=== PATIENT | female | born 1985 | race Caucasian/White ===

== ENCOUNTER → 2022-08-30 13:17 | Outpatient (CLI) | payer OTHER, SELFPAY ==
--- NOTE | 2022-08-30 | DI.US.S_ITS ---
PROCEDURE: US OB >= 14 WEEKS FETUS INDICATIONS: 20WK ANATOMY SCAN OUTSIDE/PRIOR DATING DATA: Last menstrual period (LMP): 04/13/2022 LMP-based estimated date of delivery (MAYNOR): 01/18/2023 First dating scan (date and location): Not applicable Estimated date of delivery (MAYNOR) from first dating scan: Not applicable The calculations are made using the working MAYNOR of 01/18/2023 TECHNIQUE: Real-time scanning was performed of the fetus, with image documentation and biometric measurements. Endovaginal scanning: Not indicated COMPARISON: None. FINDINGS: General: A single living intrauterine gestation is present. Presentation: Breech Placenta: Placental position is posterior, without previa. Amniotic fluid index: 14.9 cm, normal range is 5-24 cm. Single deepest vertical pocket is 4.4 cm. heart rate: 144 beats per minute. Maternal cervical canal: 5.1 cm long. Normal lower limit is 2.5 cm. biometrics: Biparietal diameter: 4.9 cm, 20 weeks, 6 days. Head circumference: 17.9 cm, 20 weeks, 3 days. Abdominal circumference: 16.5 cm, 21 weeks, 4 days. Femur length: 3.3 cm, 20 weeks, 1 day. Clinically estimated gestational age: 19 weeks, 6 days. Composite gestational age from present scan: 20 weeks, 5 days. Estimated weight and percentile: 381 grams, 92 percent. Anatomic survey: Neuro: Ventricles are non-dilated at less than 10 mm. Cisterna magna is normal at 3-11 mm. Cerebellum is normal in size and morphology. Nuchal skin fold: Normal at less than 6 mm between 14-21 weeks gestational age. Face: Nose and lips, facial profile are not well seen due to position. Spine: No evidence for spina bifida. Heart: 4-chambered heart is present, with normal ventricular outflow tracts. Diaphragm: Diaphragm is intact. Stomach: Left-sided stomach is present. Kidneys: No hydronephrosis. Normal is less than 5 mm in 2nd trimester, less than 7 mm in 3rd trimester. Cord: 3-vessel cord has orthotopic insertion. Bladder: Normal in size. Extremities: All 4 extremities identified. IMPRESSION: 1. Single live intrauterine gestation with fetus in breech presentation. heart rate is 144 beats per minute. Normal amount of amniotic fluid. Normal growth. Estimated weight is at 92 percent. 2. facial profile is not well seen on this study due to position. Rest of the anatomic survey is normal. We strive to produce accurate, complete, and clear reports of imaging services. To assist us in improving patient care, this report was composed using standard report templates and voice recognition software. Therefore, it may contain abnormal punctuation, insertions and/or omissions. Occasional wrong-word or sound-alike substitutions may occur. Though we review the report and make efforts to correct it, we do recommend that the report be read carefully in proper context to recognize any text inaccuracies. Dictated by: Claude John M.D. on 08/30/2022 at 15:18 Approved by: Claude John M.D. on 08/30/2022 at 15:22
== END ==
PROVIDERS: PCP Family Medicine; Referring Provider Advanced Practice Midwife; Visit Provider Advanced Practice Midwife
DX: Z36.89 Encounter for other specified antenatal screening (principal); Z3A.19 19 weeks gestation of pregnancy
CPT/HCPCS: 76811

== ENCOUNTER → 2022-10-27 14:10 | Outpatient (CLI) | payer OTHER, SELFPAY ==
--- NOTE | 2022-10-27 | DI.US.S_ITS ---
PROCEDURE: US OB LIMITED INDICATIONS: LGA; RE-EVALUATE PROFILE, NOSE/LIPS OUTSIDE/PRIOR DATING DATA: Last menstrual period (LMP): 04/13/22. LMP-based estimated date of delivery (MAYNOR): 01/18/23. First dating scan (date and location): Not available. Estimated date of delivery (MAYNOR) from first dating scan: Unknown. The calculations are made using the clinical MAYNOR of 01/18/23. TECHNIQUE: Real-time scanning was performed of the fetus, with image documentation and biometric measurements. Endovaginal scanning: Not performed COMPARISON: [facility], OB >= 14 WEEKS FETUS, 08/30/2022, 12:41. FINDINGS: General: A single living intrauterine gestation is present. Presentation: Vertex. Placenta: Placental position is posterior , without previa. Amniotic fluid index: 15.9 cm, normal range is 5-24 cm. Single deepest vertical pocket is 5.3 cm. heart rate: 136 beats per minute. Maternal cervical canal: Closed and 3.6 cm long. Normal lower limit is 2.5 cm. biometrics: Biparietal diameter: 7.7 cm, 30 weeks five days Head circumference: 27.1 cm, 29 weeks four days Abdominal circumference: 24.6 cm, 28 weeks six days Femur length: 5.4 cm, 28 weeks three days Clinically estimated gestational age: 28 weeks one day Composite gestational age from present scan: 29 weeks three days Estimated weight and percentile: 1295 g, 65th percentile Other: profile appears normal. nose and lips are seen without cleft lip. IMPRESSION: 1. Single living intrauterine with growth one week and two days ahead of the clinically assigned gestational age. 2. Estimated weight at the 65th percentile. 3. Completion of anatomic survey with normal appearing facial profile and nose and lips. We strive to produce accurate, complete, and clear reports of imaging services. To assist us in improving patient care, this report was composed using standard report templates and voice recognition software. Therefore, it may contain abnormal punctuation, insertions and/or omissions. Occasional wrong-word or sound-alike substitutions may occur. Though we review the report and make efforts to correct it, we do recommend that the report be read carefully in proper context to recognize any text inaccuracies. Dictated by: Bess Roca M.D. on 10/27/2022 at 17:12 Approved by: Bess Roca M.D. on 10/27/2022 at 17:16
== END ==
PROVIDERS: PCP Family Medicine; Referring Provider Advanced Practice Midwife; Visit Provider Advanced Practice Midwife
DX: Z36.2 Encounter for other antenatal screening follow-up (principal); O26.843 Uterine size-date discrepancy, third trimester; Z3A.29 29 weeks gestation of pregnancy
CPT/HCPCS: 76815

== ENCOUNTER 2023-01-08 06:09 | Inpatient (IN) | payer OTHER, MEDICAID, SELFPAY ==
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
[2023-01-08 07:07] VITALS: BP 103/61; PULSE 100; RESP 16
[2023-01-08 10:00] LABS: Add Manual Diff / Slide Review NO; Basophils Absolute Auto 100 /uL (0-100); Basophils Percent Auto 0.4 % (0-2); Eosinophils Absolute Auto 100 /uL (0-450); Eosinophils Percent Auto 0.4 % (2-4); Hematocrit 36.4 % (36-46); Hemoglobin 12.2 g/dL (12.0-16.0); Lymphocytes Absolute Auto 2000 /uL (1100-4500); Lymphocytes Percent Auto 13.2 % (25-40); Mean Corpuscular HGB Conc 33.4 % (30-36); Mean Corpuscular Hemoglobin 29.4 PG (26-34); Mean Corpuscular Volume 87.9 fL (80-100); Monocytes Absolute Auto 1000 /uL (0-900); Monocytes Percent Auto 6.5 % (3-14); Neutrophils Absolute Auto 12100 /uL (1500-7000); Neutrophils Percent Auto 79.5 % (50-75); Platelet Count 176 X10^3/uL (150-400); Red Blood Cell Count 4.14 X10^6/uL (4.0-5.2); Red Cell Distribution Width 13.8 % (11.6-14.8); White Blood Cell Count 15.2 X10^3/uL (4.5-11.0)
--- NOTE | 2023-01-08 10:30 | PM.OBPNLAB ---
Date/Time Date Patient Seen: 01/08/23 Time Patient Seen: 10:30 Pain Control Pain control: tolerating well Comments: Pt coping well with contractions with support from her , position changes, hydrotherapy. Contractions are increasing in intensity and consistently every 3-4 minutes. Eloise declines a cervical exam at this time, would like to stay. Pelvic Exam Dilation (cm): 8 Effacement (%): 90 station: -1 Amniotic membrane status: Intact Comments: Bulging bag of water noted on exam. Contractions Date/Time contractions began: Consistent contractions started 01/08/23 around 0300 Monitor mode: None (observation) Contraction frequency (min): 3 Contraction pattern: Regular Contraction intensity: Strong/Firm Status Heart Rate Baseline: 130 Comments: Intermittent monitoring. Increases noted. Decreases absent. Assessment and Plan Assessment: active labor Plan: continuous present management Comments: A: Term Multipara Active labor Intact membranes Reassuring FHR by intermittent auscultation Back pain P: Admit with standard orders Hydrotherapy and NO2 for pain management Oral hydration and continue eating Continued support from partner, nurse, and CNM Anticipate NSVB
--- NOTE | 2023-01-08 14:07 | PM.OBPNLAB ---
Date/Time Date Patient Seen: 01/08/23 Time Patient Seen: 14:07 Pain Control Comments: CNSimon has been in the room providing labor support for last 2 hours. Eloise is working hard with contractions, now feeling pain in front rather than her back. Asking for more help with pain management. Just got out of shower. Has been using nitrous, wondering about narcotics or other options. Isn't feeling as strong as she was earlier today. Pelvic Exam Dilation (cm): 8 Effacement (%): 90 station: 0 Amniotic membrane status: Intact Contractions Contractions on admission: irregular (q 3-7 min, quickly followed by regular q 4-5 min) Monitor mode: External Contraction frequency (min): 3 Contraction duration (min): 60 Contraction pattern: Regular Contraction intensity: Strong/Firm Status Heart Rate Baseline: 130 Comments: Intermittent monitoring. No decreases noted. Increases heard. Assessment and Plan Assessment: active labor Plan: continuous present management Comments: at 38w4d based on LMP Rh positive GBS neg Intact membranes FHR reassuring with intermittent auscultation Recommend AROM. At this time she declines. Place IV for pain management options to increase. Recommend trying the tub again. Provide support, encouragement. Anticipate .
[2023-01-08] MEDS: LACTATED RINGERS 1,000 ML 100 ML IV (14:25)
[2023-01-08] MEDS: OXYTOCIN 10 UNIT/ML VIAL IM (14:58)
--- NOTE | 2023-01-08 15:09 | PM.OBPRVD ---
Events: Other (Spontaneous labor at term) Labor & Delivery Delivery date: 01/08/23 Intrapartal Events: Acceleration Delivery monitor: external FHT Route of delivery: L&D Laceration Description: Vaginal - 1st Degree Quantitative Blood Loss: 301 Anesthesia Type: Other (nitrous oxide) Complications: none. Narrative: Eloise was laboring in hands and knees on the bed, after getting out of the shower, and was beginning to have a hard time coping with the pelvic pain despite NO2 use and support from partner, CNM, SNM. She requested an epidural. An IV was placed by RN, bolus started and anesthesia called. During a contraction Eloise declared that the baby was coming. She SROMed copious amounts of clear fluid. She had the spontaneous urge to push and began bearing down, using NO2 for pain management. FHR was reassuring through second stage. Anesthesia came to bedside, but was turned away as she was already pushing with the baby making a quick decent. She moved to standing, SNM applied warm compress to support perineum and hemorrhoids. Eloise pushed for 10min. A vigorous baby was born OA and restituted with the next contraction JENNY. Shoulders were delivered without additional maneuvers. Baby was caught and held by SNM and w/d/s by nurses and CNM as Eloise got ready to receive him. Baby boy Colin was passed between her legs and she was helped into bed as she held him skin to skin on her chest. Pitocin was administered IM for AMTSL. Once cord has ceased pulsation it was double clamped by CNM and cut by FOB. Placenta was delivered Schultze with some large clots about 8min after delivery, 3VC, appeared intact after inspection. Perineum was found to be intact. A well approximated vaginal laceration was found at the posterior introitus. There was a small trickle of blood, but after some pressure and asking Eloise to hold her legs together the laceration became hemostatic. QBL 187mL. Both Eloise and Colin were stable and initiating as we left the room. Eloise and Shane are so excited to meet their baby boy. Baby 1: Infant gender: Male ((surprise!)) Presentation: vertex Position: Right Occiput Anterior Placenta delivery description: Spontaneous Cord Vessel Description: 3 Vessels score (1 min): 8 score (5 min): 9 weight: 3.43 kg Plan for aftercare: Routine care
[2023-01-08] MEDS: KETOROLAC 30 MG/ML VIAL IV (15:52)
--- NOTE | 2023-01-09 14:33 | PM.OBDS.1 ---
Discharge Providers Provider Date of admission: 01/08/23 06:09 Discharge Date: 01/09/23 Primary care physician: Amauri Poe DO Consults: 01/09/23 15:06 Consult to Bookkeeping Service Sales Agent Routine Comment: Discharge provider: Marissa Bland CNM, ARNP Summary Hospital Course Date Patient Seen: 01/09/23 Time Patient Seen: 13:30 Diagnoses: Supervision of normal Advanced Maternal Age Vaginal delivery of normal Intact perineum Vaginal laceration, unrepaired Hospital Course: Eloise arrived in spontaneous labor. Labored well using nitrous oxide, shower, tub, support for pain relief. Requested epidural, then had SROM and immediatly began pushing. Short 2nd stage led to NSVB standing at bedside. Healthy, vigorous baby boy with Apagars of 8/9 welcomed to the world. Normal blood loss, intact perineum. . Normal course. Discharged home at 24 hours. Peripartum Data Infant Delivery Method: Natural Vaginal Laceration Description: Vaginal - 1st Degree 1: Gender: Male ((surprise!)) Disposition of : home Discharge Diagnosis (1) Patient is a currently breast-feeding mother: Status: Acute (2) Antepartum elderly multigravida: Status: Acute (3) Delivery of : Status: Acute (4) Single live : Status: Acute (5) Hemorrhoids in the puerperium: Status: Acute Status at Discharge Cognitive/behavioral status at discharge: at baseline, oriented Functional status at discharge: independent ambulation Overall status at discharge: patient is progressing back to baseline Time Spent with Patient Time attestation: Total time spent providing and/or coordinating discharge services: Specific discharge activities: Reviewed usual instructions including warning signs and when to call BITA. Objective Labs 01/08/23 09:45 Exam Vital Signs (past 8 hours): BP 98/59 HR 69 bpm RR 14/min Temp: 98.0 F Other: Fundus firm at U, midline. Lochia scant Perineum intact with minimal edema Discharge Plan Discharge Plan Patient Disposition: Home Discharge orders & Medications Follow up/Referrals: Amauri Poe DO [Primary Care Provider] - Marissa Bland CNM, ARNP [Advanced Serging Machine Operator] - 2 Weeks (2 week call 6 week visit Both scheduled - see e-mail) Diet/Activity/Treatments Diet: Diet as Tolerated and Regular Activity: low ramsey x 2 weeks Cold/Heat Therapy: as needed for pain/comfort Skin/Wound/Dressing Care Skin care: usual care Report to your healthcare provider any signs of infection, such as:: chills, fever, unusual drainage and unusual redness Visit Report/Discharge Packet Stand Alone Forms: Patient Portal/API Discharge Data Primary Care Provider: Amauri Poe Attending Provider: Marissa Bland Admit Date/Time: 01/08/23 06:09
[2023-01-09 15:34] VITALS: BP 98/59; PULSE 69; RESP 14; TEMP 36.7
== END 2023-01-09 15:09 | disposition home or self-care (01) | DRG 807 ==
PROVIDERS: Admitting Provider Advanced Practice Midwife; PCP Family Medicine; Referring Provider Advanced Practice Midwife; Visit Provider Advanced Practice Midwife
DX: O76 Abnormality in fetal heart rate and rhythm complicating labor and delivery (principal); Z37.0 Single live birth; Z3A.38 38 weeks gestation of pregnancy
CPT/HCPCS: 59050; 85025; 86850; 86900; 86901; G0378; G0379; J1885; J2590

== ENCOUNTER → 2023-09-29 10:48 | Outpatient (CLI) | payer OTHER, MEDICAID, SELFPAY ==
[2023-09-29 11:57] LABS: Hematocrit 39.6 % (36-46); Hemoglobin 13.5 g/dL (12.0-16.0); Mean Corpuscular HGB Conc 34.2 % (30-36); Mean Corpuscular Hemoglobin 30.1 PG (26-34); Mean Corpuscular Volume 88.1 fL (80-100); Platelet Count 267 X10^3/uL (150-400); Red Blood Cell Count 4.49 X10^6/uL (4.0-5.2); Red Cell Distribution Width 13.8 % (11.6-14.8); White Blood Cell Count 6.1 X10^3/uL (4.5-11.0)
[2023-09-29 12:33] LABS: BUN Creatinine Ratio 22.4 (6-22); Blood Urea Nitrogen 11 mg/dL (7-17); Calcium 9.4 mg/dL (8.4-10.2); Carbon Dioxide 27 mmol/L (22-32); Chloride 105 mmol/L (98-107); Estimated Glomerular Filt Rate > 60 mL/min (>60); Glucose 83 mg/dL (70-100); HEMOLYSIS < 15 (0-50); Sodium 141 mmol/L (137-145)
[2023-09-29 13:00] LABS: TSH w/ Reflex to FT4 1.31 uIU/mL (0.47-4.68)
== END ==
PROVIDERS: PCP Nurse Practitioner Family; Referring Provider Nurse Practitioner Family; Visit Provider Nurse Practitioner Family
DX: K62.5 Hemorrhage of anus and rectum (principal)
CPT/HCPCS: 36415; 80048; 84443; 85027

== ENCOUNTER → 2023-11-02 12:06 | Outpatient (CLI) | payer OTHER, MEDICAID, SELFPAY | PROVIDERS: PCP Nurse Practitioner Family; Visit Provider Physician Assistant | DX: S81.801A Unspecified open wound, right lower leg, initial encounter (principal) | CPT/HCPCS: 87070; 87075; 87205 ==

== ENCOUNTER 2024-02-06 10:08 | Day surgery (SDC) | payer OTHER, SELFPAY ==
--- NOTE | 2024-02-06 | PATH_ITS ---
[facility] Accession Number: [id number] No. of containers..03 Tissue . 01 Material submitted: . PART A: colon - SIGMOID POLYP PART B: colon - RECTAL SIGMOID POLYP PART C: rectum - RECTAL POLYP . 01 Diagnosis: Part A: SIGMOID POLYP: Tubular adenoma. . Part B: RECTAL SIGMOID POLYP: Colonic mucosa with benign lymphoid aggregate. No neoplasm identified. . Part C: RECTAL POLYP: Polypoid colonic mucosa with mild active inflammation and mild crypt architectural distortion. No granulomas, dysplasia, or malignancy identified. See comment. . Specimen Comments: If this is an isolated lesion, it may represent an inflamed hyerplastic polyp. The histologic differential also includes involvement by inflammatory bowel disease or diverticular disease associated colitis. Correlation with clinical features and with the endoscopic appearance is needed for further evaluation. [facility] 02/07/20241453 Local . 01 Electronically signed: . Brent Becerril MD, Pathologist NPI- [id number] . 01 Gross description: . Part A: SIGMOID POLYP: Received in formalin is 1 fragment(s) of franco, soft tissue measuring 0.3 x 0.3 x 0.2 cm submitted entirely in 1 cassette(s) . Part B: RECTAL SIGMOID POLYP: Received in formalin are 2 fragment(s) of franco, soft tissue measuring 0.1 x 0.1 x 0.1 cm to 0.2 x 0.2 x 0.2 cm submitted entirely in 1 cassette(s) . Part C: RECTAL POLYP: Received in formalin are 2 fragment(s) of franco, soft tissue measuring 0.1 x 0.1 x 0.1 cm to 0.3 x 0.3 x 0.2 cm submitted entirely in 1 cassette(s) /LUCERO 02/07/2024 1454 Local . 01 Pathologist provided ICD-10: D12.5, K62.1, K63.89 . 01 CPT . 024173, 932711, 043109 Specimen Comment: A courtesy copy of this report has been sent to [phone] Performed at: [address] [id number] MD Brent Becerril MD Phone: [phone]
[2024-02-06 10:26] VITALS: BP 94/57; PULSE 66; RESP 16; TEMP 36.1; O2SAT 96
[2024-02-06] MEDS: LACTATED RINGERS 1,000 ML 42 ML IV (10:34)
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
--- NOTE | 2024-02-06 11:04 | PM.PREOP ---
Pre-operative Note Interval Note History & Physical reviewed/Exam performed by Physician: Yes Changes to H&P: Yes ASA Class (for procedural sedation): II
--- NOTE | 2024-02-06 12:25 | PM.OP.COLON ---
Operative Date/Time/Diagnoses Date of procedure: 02/06/24 Time of procedure: 12:25 Pre-op diagnosis: Intermittent rectal bleeding Post-op diagnosis: same Procedure & Clinicians Study performed: Colonoscopy with biopsies and cold snare polypectomy Same procedure as scheduled: Yes Indications: Intermittent rectal bleeding Surgeon: Fortunato Nelson Procedure Notes SCOAP/Timeout: Done Procedure in detail: After the risks and benefits were explained, written and verbal informed consent was obtained. The patient was brought into the procedure room and placed into the left lateral decubitus position. Conscious sedation medication was applied as per nursing documentation. Digital rectal examination was accomplished. The scope was introduced into the patient and advanced under direct visualization to the cecum as identified by the appendiceal orifice and ileocecal valve. The scope was slowly withdrawn to carefully examine the mucosa for any defects or lesions. Comprehensive imaging was accomplished throughout the rectum including the dentate line. The colon was decompressed, the scope was then removed from the patient who tolerated the procedure well. Scope withdrawal time: 20 minutes Sedation minutes: 30 Complications: none Impression: There was a cuff of inflamed mucosa in the distal rectum for perhaps almost 2 cm proximal to the dentate line. Otherwise the mucosa in the proximal rectum through to the cecum was within normal limits. The patient had a moderately tortuous sigmoid colon. In the sigmoid there was a 6 mm sessile polyp removed with cold snare. The terminal ileum was interrogated and found to be visually normal. Biopsies were taken from the normal-appearing rectosigmoid mucosa and then a separate jar was taken from the mildly inflamed appearing mucosa in distal rectum. The patient had evidence of grade 1 internal hemorrhoids no active bleeding. Endoscopic diagnosis 1. Distal proctitis 2. Small colon polyp 3. Tortuous left colon 4. Mild grade 1 internal hemorrhoids Post-procedure Plan for aftercare: 1. Await histology 2. [place]asa 1 g suppository before bed is initiated. 3. Follow up GI clinic. 4. Surveillance colonoscopy will be contingent on pathology results. Disposition: PACU
[2024-02-06 12:29] VITALS: BP 86/52; PULSE 66; RESP 15; TEMP 36.4; O2SAT 97
[2024-02-06 12:37] VITALS: BP 93/60; PULSE 58; RESP 12; TEMP 36.4; O2SAT 99
[2024-02-06 12:40] VITALS: BP 95/61; PULSE 55; RESP 20; TEMP 36.4; O2SAT 98
[2024-02-06 12:47] VITALS: BP 99/61; PULSE 59; RESP 18; O2SAT 99
== END 2024-02-06 12:58 | disposition home or self-care (01) ==
PROVIDERS: PCP Nurse Practitioner Family; Referring Provider Internal Medicine Gastroenterology; Visit Provider Internal Medicine Gastroenterology
PROC: 0DJD8ZZ Inspection of Lower Intestinal Tract, Via Natural or Artificial Opening Endoscopic (ICD-10-PCS; CPT 45378; principal; 2024-02-06 11:30)
DX: K62.5 Hemorrhage of anus and rectum (principal); K64.0 First degree hemorrhoids; K62.89 Other specified diseases of anus and rectum; D12.5 Benign neoplasm of sigmoid colon; K62.1 Rectal polyp
CPT/HCPCS: 45385; 45380; J2704

== ENCOUNTER → 2024-05-30 09:55 | Outpatient (CLI) | payer OTHER, SELFPAY ==
[2024-05-30 11:08] LABS: Hematocrit 40.1 % (36-46); Hemoglobin 13.2 g/dL (12.0-16.0); Mean Corpuscular HGB Conc 32.9 % (30-36); Mean Corpuscular Hemoglobin 29.9 PG (26-34); Mean Corpuscular Volume 90.9 fL (80-100); Platelet Count 237 X10^3/uL (150-400); Red Blood Cell Count 4.41 X10^6/uL (4.0-5.2); Red Cell Distribution Width 12.8 % (11.6-14.8); White Blood Cell Count 7.1 X10^3/uL (4.5-11.0)
[2024-05-30 11:22] LABS: BUN Creatinine Ratio 21.1 (6-22); Blood Urea Nitrogen 12 mg/dL (7-17); Calcium 9.5 mg/dL (8.4-10.2); Carbon Dioxide 25 mmol/L (22-32); Chloride 104 mmol/L (98-107); Cholesterol 164 mg/dL (140-199); Estimated Glomerular Filt Rate > 60 mL/min (>60); Glucose 86 mg/dL (70-100); HDL Cholesterol 53 mg/dL (40-60); HEMOLYSIS < 15 (0-50); LDL Cholesterol Calculated 98 mg/dL (<100); Potassium 4.4 mmol/L (3.4-5.1); Sodium 135 mmol/L (137-145); Triglycerides 65 mg/dL (35-150)
[2024-05-30 11:52] LABS: TSH w/ Reflex to FT4 1.09 uIU/mL (0.47-4.68)
== END ==
PROVIDERS: PCP Nurse Practitioner Family; Referring Provider Nurse Practitioner Family; Visit Provider Nurse Practitioner Family
DX: Z13.220 Encounter for screening for lipoid disorders (principal); K59.00 Constipation, unspecified; Z86.39 Personal history of other endocrine, nutritional and metabolic disease
CPT/HCPCS: 36415; 80048; 80061; 84443; 85027

== ENCOUNTER → 2025-03-22 16:32 | Outpatient (CLI) | payer OTHER, SELFPAY ==
--- NOTE | 2025-03-22 16:33 | DI.US.S_ITS ---
PROCEDURE: US PELVIC COMPLETE INDICATIONS: PELVIC PAIN TECHNIQUE: Real-time scanning was performed of the pelvic organs, with image documentation. Additional endovaginal scanning was necessary due to incomplete visualization of the adnexal and endometrial structures by transabdominal scanning. COMPARISON: None. FINDINGS: Uterus: Uterus is anteverted, obliquely positioned, and normal in size at 8.3 x 5.0 x 4.7 cm. The myometrium is homogeneous. The endometrium measures 10.0 mm combined thickness. No myometrial masses. Normal uterine vascularity. The cervix appears normal. Ovaries: The right ovary measures 3.1 x 2.1 x 1.9 cm, with a calculated ovarian volume of 6.5 cc. The left ovary measures 5.0 x 3.0 x 2.0 cm, with a calculated ovarian volume of 15.7 cc. Engorgement of right ovarian vasculature. Corpus luteum in the left ovary. Less than 12 follicles can be seen in each ovary. No adnexal masses are seen. Other: No pathologic free abdominal or pelvic fluid. IMPRESSION: Engorged right ovarian vasculature could be symptomatic. Otherwise normal pelvic ultrasound. We strive to produce accurate, complete, and clear reports of imaging services. To assist us in improving patient care, this report was composed using standard report templates and voice recognition software. Therefore, it may contain abnormal punctuation, insertions and/or omissions. Occasional wrong-word or sound-alike substitutions may occur. Though we review the report and make efforts to correct it, we do recommend that the report be read carefully in proper context to recognize any text inaccuracies. Dictated by: Bess Roca M.D. on 03/23/2025 at 13:12 Approved by: Bess Roca M.D. on 03/23/2025 at 13:23
== END ==
PROVIDERS: PCP Nurse Practitioner Family; Referring Provider Nurse Practitioner Obstetrics & Gynecology; Visit Provider Nurse Practitioner Obstetrics & Gynecology
DX: N83.12 Corpus luteum cyst of left ovary (principal); R14.0 Abdominal distension (gaseous); R10.20 Pelvic and perineal pain unspecified side
CPT/HCPCS: 76830; 76856